=== PATIENT | male | born 1960 | race African-American/Black ===

== ENCOUNTER 2019-08-30 07:48 | Outpatient (CLI) | payer OTHER, SELFPAY ==
[2019-08-30 08:30] VITALS: PULSE 74; O2SAT 93
[2019-08-30 08:35] VITALS: PULSE 76; O2SAT 86
[2019-08-30 08:40] VITALS: PULSE 84; O2SAT 87
[2019-08-30 08:45] VITALS: PULSE 91; O2SAT 90
[2019-08-30 08:55] VITALS: PULSE 72; O2SAT 92
--- NOTE | 2019-08-30 12:54 | HOMEO2EVAL ---
Home Oxygen Evaluation RC: Home Oxygen (O2) Evaluation Start: 08/30/19 12:51 Freq: Status: Active Protocol: RPE Activity Type Activity Date Activity User E-Sign Co-Sign Detail Recorded Client Recorded Date Recorded By Document 08/30/19 08:30 [email or web address] [email or web address] 08/30/19 12:54 DJO Document 08/30/19 08:35 [email or web address] [email or web address] 08/30/19 12:54 DJO Document 08/30/19 08:40 [email or web address] [email or web address] 08/30/19 12:54 DJO Document 08/30/19 08:45 [email or web address] 08/30/19 12:54 DJO Document 08/30/19 08:55 [email or web address] [email or web address] 08/30/19 12:54 DJO 08/30/19 08/30/19 08/30/19 08:30 08:35 08:40 Home O2 Evaluation Test Phase Resting Exercise Exercise Oxygen Delivery Room Air Room Air Nasal Cannula Oxygen Flow Rate (L/min) 1 Pulse Oximetry (90-100 %) 93 86 L 87 L Pulse Rate (60-100 beats/min) 74 76 84 Activity Tolerance Rating of Perceived Dyspnea (PD) Ambulation Distance (feet) 08/30/19 08/30/19 08:45 08:55 Home O2 Evaluation Test Phase Exercise Resting Oxygen Delivery Nasal Cannula Room Air Oxygen Flow Rate (L/min) 2 Pulse Oximetry (90-100 %) 90 92 Pulse Rate (60-100 beats/min) 91 72 Activity Tolerance Excellent Rating of Perceived Dyspnea (PD) +1 Mild, Noticeable to the Participant but Not to an Observer Ambulation Distance (feet) 1,000
--- NOTE | 2019-08-30 13:02 | PCRCNOTE ---
HOME O2 EVAL COMPLETE, FAXED TO DR. CARVALHO'S OFFICE
== END 2019-08-30 07:49 | disposition home or self-care (01) ==
PROVIDERS: PCP Internal Medicine Infectious Disease; Visit Provider Nurse Practitioner Family
DX: R09.02 Hypoxemia (principal)
CPT/HCPCS: 94618